=== PATIENT | male | born 1975 | race Caucasian/White ===

== ENCOUNTER → 2016-10-03 | Day surgery (SDC) | payer BC ==
[~2016-10-03] VITALS: Ht 182.9 cm; Wt 80.7 kg
[~2016-10-03] MED LIST: ADVIL200 MG PO; TYLENOL WITH C1 EACH PO
--- NOTE | ~2016-10-03 | OR ---
PATIENT'S NAME: NEREIDA PUENTES [facility] AGE: 40 Y [address] ROOM: [place] [address] [place]: [facility] [place] DATE: 10/03/2016 OR/Procedure Report DISCHARGE DATE: FAMILY PHYSICIAN: Robert Lyons MD ATTENDING PHYSICIAN: Madalyn Snider SURGEON: Madalyn Snider MD STACKER DRIVER: DATE OF PROCEDURE: 10/03/2016 PREOPERATIVE DIAGNOSIS: Proximal right ureter stone. POSTOPERATIVE DIAGNOSIS: Proximal right ureter stone. PROCEDURE PERFORMED: Cystoscopy, stone manipulation, right stent placement, and right ESWL. ANESTHESIA: MAC. COMPLICATIONS: None. INDICATION FOR PROCEDURE: The patient is a 40-year-old male with a 6 x 8 mm proximal right ureter stone that he is unable to pass. DETAILS OF PROCEDURE: After informed consent obtained, the patient was taken to the operating room. A MAC anesthetic was applied, and he was placed in a dorsal lithotomy position. The groin area was prepped and draped in normal sterile fashion. Cystoscope was introduced into the urethra and bladder without difficulty. The right ureteral orifice was identified and cannulated with a guidewire up into the renal pelvis. Next, the open-ended ureteral catheter was introduced and this was used to manipulate the stone up into the renal pelvis. The catheter was then removed and a 6-[place] multi-length ureteral stent was passed over the guidewire up into the renal pelvis. Radiographic imaging showed good position of the stent. The patient was then transferred to the lithotripsy table in the supine position. His stone was then targeted with fluoroscopy. He received shocks starting at 16 kilovolts and gradually increased to 24 kilovolts. The patient received a total of 2500 shocks with good fragmentation of the stone. The patient tolerated the procedure well and was transferred to the recovery room in good condition. MADALYN SNIDER MD PATIENT'S NAME: NEREIDA PUENTES [facility] AGE: 40 Y [address] ROOM: [place] [address] LOCATION: [facility] [place] DATE: 10/03/2016 OR/Procedure Report DISCHARGE DATE: FAMILY PHYSICIAN: Robert Lyons MD ATTENDING PHYSICIAN: Madalyn Snider/kimberlyl /[id number] CC: Robert Lyons MD d: 10/04/16 0016 t: 10/17/16 0902, OPERATIVE SUMMARY
== END | disposition disaster alternative care site (69) ==
LOC: GPOC 12:00 → EDSEX 12:43 → GSDC 12:43
PROC: 0T768DZ Dilation of Right Ureter with Intraluminal Device, Via Natural or Artificial Opening Endoscopic (ICD-10-PCS; principal; 2016-10-03)
PROC: 0TF6XZZ Fragmentation in Right Ureter, External Approach (ICD-10-PCS; 2016-10-03)
DX: N20.1 Calculus of ureter (principal); Z94.7 Corneal transplant status; Z98.41 Cataract extraction status, right eye; Z98.890 Other specified postprocedural states; Z96.1 Presence of intraocular lens
CPT/HCPCS: C1769; J1956; J2001; J7030

== ENCOUNTER → 2016-10-20 | Outpatient (CLI) | payer BC | END | disposition disaster alternative care site (69) | LOC: GRAD 09:43 | DX: N20.0 Calculus of kidney (principal); Z96.0 Presence of urogenital implants ==